=== PATIENT | male | born 1980 | race African-American/Black ===

== ENCOUNTER 2016-05-23 20:57 | Emergency (ER) | payer SELFPAY ==
[2016-05-23 21:05] VITALS: BP 116/70; PULSE 108; TEMP 98.4
[2016-05-23 21:06] VITALS: BMI 30.7
--- NOTE | 2016-05-23 21:16 | EDPRACDOC ---
- General Information Chief Complaint: Foot Pain Stated Complaint: LEFT FOOT PAIN Time Seen by Provider: 05/23/16 21:09 Information Source: Patient Mode of Arrival: Car Home Medications: Home Medications Amoxicillin Trihydrate [Amoxicillin] 500 mg PO TID #21 tab 09/30/14 Hydrocodone Bit/Acetaminophen [Hydrocodon-Acetaminophen 5-325] 1 tab PO Q6 PRN # 15 tab 09/30/14 Fluticasone Propionate [Flonase Nasal [place]] 2 spray SHANNAN DAILY #1 each 01/30/16 Sulfamethoxazole/Trimethoprim [Bactrim Ds Tablet] 1 tab PO BID #20 tab 01/30/16 Gabapentin 100 mg PO TID #90 cap 05/23/16 Ketorolac Tromethamine 10 mg PO Q8H PRN #15 tab 05/23/16 Allergies/Adverse Reactions: Allergies Allergy/AdvReac Type Severity Reaction Status Date / Time No Known Allergies Allergy Verified 05/23/16 21:11 - History of Present Illness Onset: this am HPI: Pt c/o L anterior foot pain x weeks. Pt states pain worse with standing. Denies numbness, ankle pain, leg pain, rash. Pt states sometime feels like pins and needles sticking him in his foot. Foot Problem Location: Reports: Left, Anterior Mechanism: Reports: No Injury Circumstances: Reports: Spontaneous Able to Bear Weight: Limited Pain Severity: Reports: Moderate Associated Signs & Symptoms: Reports: None ED Past Medical History - History Reviewed Yes Nurses notes reviewed and agree except as marked - Patient Medical History Respiratory History: Reports: Asthma Psychological History: Denies: Depression Systemic History: Denies: Diabetes (QUESTIONABLE) - Social Medical History Smoking Status: Heavy tobacco smoker (5 or more cigarettes/day or daily pipe/ cigar) ETOH: Social Substance Abuse: None EDM Review of Systems - Review of Systems Constitutional: No Symptoms Reported. negative: Fever, Chills, Weakness, Fatigue, Loss of Appetite Neurological: No Symptoms Reported. negative: Headache, Dizziness, Seizure, Numbness, Weakness, Speech Difficulty, Gait Difficulty Musculoskeletal: Foot Integumentary: No Symptoms Reported. negative: Itching, Rash, Bruising, Wound Allergic/Immunologic: No Symptoms Reported. negative: Hives, Itching Hematologic: No Symptoms Reported. negative: Lymphadenopathy, Easy Bruising, Easy Bleeding Psychiatric: No Symptoms Reported. negative: Anxiety, Depression, Hallucinations, Insomnia, Suicidal - Physical Exam Constitutional: Alert Oriented to: Time, Person, Place Last recorded Vital Signs: Last Vital Signs Temp 98.4 F 05/23/16 21:04 Pulse 108 05/23/16 21:04 Resp 20 05/23/16 21:04 BP 116/70 05/23/16 21:04 Pulse Ox 94 05/23/16 21:04 Oxygen Pulse Oxygen Saturation 94 O2 Device Oxygen Flow Rate Fraction of Inspired Oxygen ( FIO2) - HEENT Head: Normal ( normocephalic) - Respiratory/Cardiovascular Respiratory: Normal - CTA (BBS clear to auscultation without adventitious sounds ) Cardiovascular: Normal (RRR without murmur, gallop or rub) - Musculoskeletal Extremities: Normal (Normal tone, Pulses 2+ No cyanosis or edema, FROM) - Integumentary Skin: Normal, Warm, Dry Lymphatics: Normal (no adenopathy) - Neurologic Memory Impaired: Normal Motor Function: Normal (Normal tone, Pulses 2+ No cyanosis or edema, FROM) Mood Description: Normal Perception: Normal ED Foot Problem Phys Exam - Musculoskeletal Foot: Normal Ankle: Normal Achilles Tendon: Normal Nail: Normal Nailbed: Normal Soft Tissue: Normal Digit: Normal Digit Strength: Normal Distal Function/Circulation: Normal - Integumentary Skin: Normal Lymphatics: Normal - Differential Diagnosis DJD Arthritis, Sprain, Other (neuropathy, tendonitis) - Diagnostic Imaging Foot Image interpreted by: Radiologist Diagnostic Imaging Comments: IMPRESSION: Negative radiographs of the left foot. Decision Time to Discharge: 21:57 - Departure Disposition: Home Condition: Good Final Diagnosis: Neuropathy of left foot Instructions: RICE: Routine Care for Injuries, Peripheral Neuropathy (ED) Education/Counseling Given To: Patient Education/Counseling Given Regarding: Diagnosis, Treatment, Follow Up Referrals: None,No Provider [Primary Care Provider] - One Week Alonzo Sevilla MD [Staff Physician] - One Week Maximo Brock MD [Staff Physician] - One Week Prescriptions: Gabapentin 100 mg PO TID #90 cap Ketorolac Tromethamine 10 mg PO Q8H PRN #15 tab PRN Reason: Pain Additional Instructions: Return for worse or different symptoms. Follow up with Personal MD in 1-2 days
--- NOTE | 2016-05-23 21:50 | DIRPT ---
CLINICAL DATA: Dorsal foot pain for weeks, worse today. No known injury. EXAM: LEFT FOOT - COMPLETE 3+ VIEW COMPARISON: None. FINDINGS: There is no evidence of fracture or dislocation. There is no evidence of arthropathy or other focal bone abnormality. An os peroneal noted. Soft tissues are unremarkable. IMPRESSION: Negative radiographs of the left foot. Electronically Signed By: Catina Perdue M.D. On: 05/23/2016 21:47
== END 2016-05-23 22:08 | disposition home or self-care (01) ==
LOC: EDMC 20:57
DX: G62.9 Polyneuropathy, unspecified (principal)
CPT/HCPCS: 99283

== ENCOUNTER 2016-06-13 22:19 | Emergency (ER) | payer SELFPAY ==
[2016-06-13 22:48] VITALS: TEMP 98.5; BMI 30.2
--- NOTE | 2016-06-13 23:03 | EDPRACDOC ---
- General Information Chief Complaint: Neuro Symptoms/Deficits Stated Complaint: DIZZINESS Time Seen by Provider: 06/13/16 22:52 Information Source: Patient Home Medications: Home Medications Amoxicillin Trihydrate [Amoxicillin] 500 mg PO TID #21 tab 09/30/14 Hydrocodone Bit/Acetaminophen [Hydrocodon-Acetaminophen 5-325] 1 tab PO Q6 PRN # 15 tab 09/30/14 Fluticasone Propionate [Flonase Nasal [place]] 2 spray SHANNAN DAILY #1 each 01/30/16 Sulfamethoxazole/Trimethoprim [Bactrim Ds Tablet] 1 tab PO BID #20 tab 01/30/16 Gabapentin 100 mg PO TID #90 cap 05/23/16 Ketorolac Tromethamine 10 mg PO Q8H PRN #15 tab 05/23/16 Allergies/Adverse Reactions: Allergies Allergy/AdvReac Type Severity Reaction Status Date / Time No Known Allergies Allergy Verified 06/13/16 22:48 - History of Present Illness Onset: Tonight Exact Onset of Symptoms: Unknown HPI: GAVE PLASMA TODAY AND FEELS WEAK. NO OTHER SXS. Symptoms Started: Reports: Gradually Weakness: Bilateral: Generalized Symptoms: Reports: Weak Symptom Severity: Reports: Does not affect activitiy Associated signs and symptoms:: Reports: None ED Past Medical History - History Reviewed Yes Nurses notes reviewed and agree except as marked - Patient Medical History Respiratory History: Reports: Asthma Psychological History: Denies: Depression Systemic History: Denies: Diabetes (QUESTIONABLE) - Social Medical History Smoking Status: Heavy tobacco smoker (5 or more cigarettes/day or daily pipe/ cigar) EDM Review of Systems - Review of Systems ROS Negative Except as Marked: Yes All systems reviewed and were negative except as marked - Physical Exam Constitutional: Alert (Awake), No apparent distress Oriented to: Time, Person, Place Last recorded Vital Signs: Last Vital Signs Temp 98.5 F 06/13/16 22:45 Pulse 100 06/13/16 22:45 Resp 18 06/13/16 22:45 BP 136/78 06/13/16 22:45 Pulse Ox 96 06/13/16 22:45 Oxygen Pulse Oxygen Saturation 96 O2 Device Room Air Oxygen Flow Rate Fraction of Inspired Oxygen ( FIO2) - HEENT Head: Normal ( normocephalic) Eye Exam: Normal (PERRL, EOMI, Sclera white) Oropharynx: Normal (Pharynx:Moist without exudate,Gums-no swelling) ENT EAC: Normal TMJ: Normal Nose: No Symptoms Reported (septum midline) Neck: Normal (FROM, trachea at midline) - Respiratory/Cardiovascular Respiratory: Normal - CTA (BBS clear to auscultation without adventitious sounds ) Cardiovascular: Normal (RRR without murmur, gallop or rub) - GI Auscultation: Normal (NABS) Palpation: Normal (Soft,No rebound or guarding, non distended) Tenderness: Non tender Powers's Sign: Negative - Musculoskeletal Back: Normal (Non-Tender) Extremities: Normal (Normal tone, Pulses 2+ No cyanosis or edema, FROM) - Integumentary Skin: Normal, Warm, Dry Lymphatics: Normal (no adenopathy) - Neurologic Memory Impaired: Normal Motor Function: Normal (Normal tone, Pulses 2+ No cyanosis or edema, FROM) Cranial Nerve: Normal (CN II-X11 intact sensation, strength 5/5) Cerebellar: Normal Mood Description: Normal Perception: Normal Decision Time to Discharge: 23:25 - Departure Yes I personally saw and evaluated the patient. Disposition: Home Condition: Good Final Diagnosis: WEAKNESS Instructions: Weakness (ED) Education/Counseling Given To: Patient Education/Counseling Given Regarding: Diagnosis, Treatment, Prognosis Referrals: None,No Provider [Primary Care Provider] - One Week Lalit Landin MD [Staff Physician] - One Week
[2016-06-13 23:10] VITALS: BP 113/78; PULSE 84
== END 2016-06-13 23:40 | disposition home or self-care (01) ==
LOC: ED 22:19
DX: R53.1 Weakness (principal); F17.200 Nicotine dependence, unspecified, uncomplicated
CPT/HCPCS: 82962; 99282